=== PATIENT | male | born 1985 | race Caucasian/White ===

== ENCOUNTER 2023-10-21 15:08 | Outpatient (AMB) | payer OTHER, SELFPAY ==
--- NOTE | 2023-10-21 15:12 | HO.NEPHOV_ITS ---
HPI HPI Comments History of Present Illness Details Mr. 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 He had seen Dr. Ger Simon MD in the past and wants me to take over his care. He has been having hypertension well over 10 years. Multiple antihypertensive medications have been tried. Investigations to rule out secondary etiology had low yield. His TSH, cortisol, aldosterone, metanephrines were all negative. His renal functions were normal and so was his serum potassium. He had 24 hour blood pressure monitor as well as Doppler of his renal arteries. He did not have any renal artery stenosis. He has a log of blood pressure readings and still has suboptimal control. He was given lisinopril, amlodipine and hydrochlorothiazide, of which he has discontinued hydrochlorothiazide completely as it was giving him hyponatremia. He has no history of any coronary artery disease, congestive heart failure, CVA, peripheral arterial disease, palpitation, sweating, orthostatic symptoms, headache, visual disturbances. He does not take excess sodium in the diet. He maintains good hydration and avoids excess nonsteroidal anti-inflammatory medications. He is concerned about his suboptimally controlled blood pressure. He has no history or documented evidence of an end-organ damage. He is very compliant with his medication intake. He has very strong family history of blood pressure especially on his mother's side. [facility], [facility] Family History Mother Hypertension Social History (Updated 10/21/23 @ 15:18 by Sue Dewitt) Alcohol intake: current Patient Tobacco Use Status: Never used Tobacco Vital Signs 10/21/23 15:13 Height 5 ft 7 in Weight 199 lb BMI 31.2 BP 136/92 H Blood Pressure Location Lt brachial Position Sitting Pulse 70 Pulse Source Pulse Oximeter Pulse Oximetry (%) 96 Oxygen Delivery Method Room Air Physical Exam Vital Signs: Last Vital Signs Pulse 70 10/21/23 15:13 BP 136/92 H 10/21/23 15:13 Pulse Ox 96 10/21/23 15:13 Oxygen Delivery Method Room Air 10/21/23 15:13 BMI result Body Mass Index 31.2 Const General: comfortable and no acute distress Orientation/consciousness: patient oriented x3 HEENT Head: Yes normocephalic Mouth: Normal oral and palatal mucosa present Eyes EOM: EOMs intact bilaterally Neck Neck: Yes supple Resp Auscultation: clear to auscultation bilaterally Cardio Jugular venous distension: no JVD Rate: regular rate GI Palpation (GI): Soft to palpation Auscultation: normal bowel sounds General: Yes no CVA tenderness Back/Spine/Pelvis Back: no CVA tenderness Skin General skin exam: no rashes or lesions noted Neuro General: patient oriented x3 and moves all extremities Extrem General: Yes no pedal edema Assessment & Plan Assessment & Plan (1) Hypertension: Code(s): I10 - Essential (primary) hypertension Qualifiers: Hypertension type: primary hypertension Qualified Code(s): I10 - Essential (primary) hypertension Plan Mr. Yancey has longstanding hypertension. He is not known to have any retinopathy, left ventricular hypertrophy, proteinuria, coronary artery disease, congestive heart failure, diastolic dysfunction or CVA. He had extensive investigations to rule out secondary etiology for hypertension, which were all negative. Doppler of his renal arteries were normal. His serum potassium and renal functions are normal as well. He has been prescribed lisinopril, amlodipine and hydrochlorothiazide in the past. He had discontinued hydrochlorothiazide given his worsening hyponatremia. I discontinued his amlodipine and switched him to nifedipine 60 mg daily. I asked him to take nifedipine in the morning and lisinopril at night for the time being. He had no side effects from calcium channel amarjit amlodipine in the past. I shall order follow-up electrolytes and renal functions along with a urine protein creatinine ratio after the next visit. He maintains good hydration and low-sodium diet. He will benefit from a bit of weight loss. I discussed about primary and secondary hypertension, its etiologies, its investigations and management strategies. All his questions and concerns were addressed. Follow-up given. Medications: New nifedipine ER 60 mg PO DAILY 30 days 30 tabs 3RF Coding Level of Care Code New Pt Level 4 (55784) Diagnoses Primary hypertension I10 Hypertension type: primary hypertension Results Reviewed Nephrology Results: No Data to Display
[2023-10-21 15:13] VITALS: BP 136/92; PULSE 70; O2SAT 96; BMI 31.2
== END 2023-10-21 16:00 | disposition home or self-care (01) ==
PROVIDERS: PCP Internal Medicine; Visit Provider Internal Medicine Nephrology
DX: I10 Essential (primary) hypertension (principal)
CPT/HCPCS: 99204

== ENCOUNTER → 2023-10-21 15:08 | Outpatient (BNVA) | payer OTHER, SELFPAY | PROVIDERS: PCP Internal Medicine; Visit Provider Internal Medicine Nephrology ==

== ENCOUNTER 2023-11-18 15:27 | Outpatient (AMB) | payer OTHER, SELFPAY ==
[2023-11-18 15:36] VITALS: BP 124/82; PULSE 92; O2SAT 96; BMI 30.4
--- NOTE | 2023-11-18 15:36 | HO.NEPHOV_ITS ---
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 Multiple antihype rtensive medicatio ns have been tried in the past . In vestigations to ru le out secondary e tiology had low frisian eld. His TSH, cor tisol, aldosterone , metanephrines we re all negative. His renal function s were normal and so was his serum p otassium. He had 24 hour blood pres sure monitor as we ll as Doppler of h is renal arteries. He did not have any renal artery s tenosis. He has a log of blood pres sure readings and his BP is under be tter control since he saw me at the last visit. He wa s given lisinopril , amlodipine and h ydrochlorothiazide , of which he has discontinued hydro chlorothiazide in the past, complete ly as it was jonathanvin g him hyponatremia . He has no histo ry of any coronary artery disease, c ongestive heart fa ilure, CVA, periph eral arterial dise ase, palpitation, sweating, orthosta tic symptoms, head ache, visual distu rbances. He does not take excess so dium in the diet. He maintains good hydration and perez ids excess nonster oidal anti-inflamm atory medications. He has no history or documented dionicio dence of an end-or nick damage. He is very compliant wi th his medication intake. He has ve ry strong family h istory of blood pr essure especially on his mother's si de PFSH Medical History (Updated 11/18/23 @ 15:40 by Aby España MA) Hypertension Family History Mother Hypertension Social History Alcohol intake: current Patient Tobacco Use Status: Never used Tobacco Vital Signs 11/18/23 15:36 Height 5 ft 7 in Weight 194 lb BMI 30.4 BP 124/82 Blood Pressure Location Rt brachial Position Sitting Pulse 92 Pulse Source Pulse Oximeter Pulse Oximetry (%) 96 Oxygen Delivery Method Room Air Physical Exam Vital Signs: Last Vital Signs Pulse 92 11/18/23 15:36 BP 124/82 11/18/23 15:36 Pulse Ox 96 11/18/23 15:36 Oxygen Delivery Method Room Air 11/18/23 15:36 BMI result Body Mass Index 30.4 Const General: comfortable and no acute distress Orientation/consciousness: patient oriented x3 HEENT Head: Yes normocephalic Mouth: Normal oral and palatal mucosa present Eyes EOM: EOMs intact bilaterally Neck Neck: Yes supple Resp Auscultation: clear to auscultation bilaterally Cardio Jugular venous distension: no JVD Rate: regular rate GI Palpation (GI): Soft to palpation Auscultation: normal bowel sounds General: Yes no CVA tenderness Back/Spine/Pelvis Back: no CVA tenderness Skin General skin exam: no rashes or lesions noted Neuro General: patient oriented x3 and moves all extremities Extrem General: Yes no pedal edema Assessment & Plan Assessment & Plan (1) Hypertension: Code(s): I10 - Essential (primary) hypertension Qualifiers: Hypertension type: primary hypertension Qualified Code(s): I10 - Essential (primary) hypertension Plan Mr. Yancey has longstanding hypertension. He is not known to have any retinopathy, left ventricular hypertrophy, proteinuria, coronary artery disease, congestive heart failure, diastolic dysfunction or CVA. He had extensive investigations to rule out secondary etiology for hypertension, which were all negative. Doppler of his renal arteries were normal. His serum potassium and renal functions are normal as well. He has been prescribed lisinopril, amlodipine and hydrochlorothiazide in the past. He had discontinued hydrochl orothiazide given his worsening hyponatremia. He was started on nifedipine 60 mg daily at the last office visit. I asked him to take nifedipine in the morning and lisinopril at night for the time being. His BP is currently at goal after the medication change at the last visit. He maintains good hydration and low- sodium diet. He will benefit from a bit of weight loss. I discussed about primary and secondary hypertension, its etiologies, its investigations and management strategies. All his questions and concerns were addressed. Follow- up given. Coding Level of Care Code Est Pt Level 3 (61879) Diagnoses Primary hypertension I10 Hypertension type: primary hypertension Results Reviewed Nephrology Results: No Data to Display
== END 2023-11-18 16:07 | disposition home or self-care (01) ==
PROVIDERS: PCP Internal Medicine; Visit Provider Internal Medicine Nephrology
DX: I10 Essential (primary) hypertension (principal)
CPT/HCPCS: 99213

== ENCOUNTER → 2023-11-18 15:27 | Outpatient (BNVA) | payer OTHER, SELFPAY | PROVIDERS: PCP Internal Medicine; Visit Provider Internal Medicine Nephrology ==

== ENCOUNTER 2024-02-17 14:25 | Outpatient (AMB) | payer OTHER, SELFPAY ==
[2024-02-17 14:47] VITALS: BP 138/92; PULSE 68; O2SAT 97; BMI 30.1
--- NOTE | 2024-02-17 14:47 | HO.NEPHOV_ITS ---
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 He has been having hypertension well over 10 years. Multiple antihypertensive medications have been tried. Investigations to rule out secondary etiology had low yield. His TSH, cortisol, aldosterone, metanephrines were all negative. His renal functions were normal and so was his serum potassium. He had 24 hour blood pressure monitor as well as Doppler of his renal arteries. He did not have any renal artery stenosis. He was given lisinopril, amlodipine and hydrochlorothiazide, of which he has discontinued hydrochlorothiazide completely as it was giving him hyponatremia. He has no history of any coronary artery disease, congestive heart failure, CVA, peripheral arterial disease, palpitation, sweating, orthostatic symptoms, headache, visual disturbances. He does not take excess sodium in the diet. He maintains good hydration and avoids excess nonsteroidal anti-inflammatory medications. He is concerned about his suboptimally controlled blood pressure. He has no history or documented evidence of an end-organ damage. He is very compliant with his medication inta ke. He has very strong family history of blood pressure especially on his mother's side. [facility] Medical History (Updated 11/18/23 @ 15:40 by Aby España MA) Hypertension Family History Mother Hypertension Social History Alcohol intake: current Patient Tobacco Use Status: Never used Tobacco Physical Exam Vital Signs: Last Vital Signs Pulse 68 02/17/24 14:47 BP 138/92 H 02/17/24 14:47 Pulse Ox 97 02/17/24 14:47 Oxygen Delivery Method Room Air 02/17/24 14:47 BMI result Body Mass Index 30.1 Const General: comfortable and no acute distress Orientation/consciousness: patient oriented x3 HEENT Head: Yes normocephalic Mouth: Normal oral and palatal mucosa present Eyes EOM: EOMs intact bilaterally Neck Neck: Yes supple Resp Auscultation: clear to auscultation bilaterally Cardio Jugular venous distension: no JVD Rate: regular rate GI Palpation (GI): Soft to palpation Auscultation: normal bowel sounds General: Yes no CVA tenderness Back/Spine/Pelvis Back: no CVA tenderness Skin General skin exam: no rashes or lesions noted Neuro General: patient oriented x3 and moves all extremities Extrem General: Yes no pedal edema Results Reviewed Nephrology Results: No Data to Display Assessment & Plan Assessment & Plan (1) Hypertension: Code(s): I10 - Essential (primary) hypertension Category: Medical Qualifiers: Hypertension type: primary hypertension Qualified Code(s): I10 - Essential (primary) hypertension Plan Mr. Yancey has longstanding hypertension. He is not known to have any retinopathy, left ventricular hypertrophy, proteinuria, coronary artery disease, congestive heart failure, diastolic dysfunction or CVA. He had extensive investigations to rule out secondary etiology for hypertension, which were all negative. Doppler of his renal arteries were normal. His serum potassium and renal functions are normal as well. He has been prescribed lisinopril, amlodipine and hydrochlorothiazide in the past. He had discontinued hydrochlorothiazide given his worsening hyponatremia. I asked him to take nifedipine 90 mg daily along with current dose of lisinopril.He maintains good hydration and low-sodium diet. He will benefit from a bit of weight loss. All his questions and concerns were addressed. Follow-up given. Medications: Changed From nifedipine ER 60 mg PO DAILY 30 days 90 tabs 1RF To nifedipine ER 90 mg (1.5 x 60 mg) PO DAILY 90 days 135 tabs 1RF Coding Level of Care Code Est Pt Level 4 (47559) Diagnoses Primary hypertension I10 Hypertension type: primary hypertension
== END 2024-02-17 15:11 | disposition home or self-care (01) ==
PROVIDERS: PCP Internal Medicine; Visit Provider Internal Medicine Nephrology
DX: I10 Essential (primary) hypertension (principal)
CPT/HCPCS: 99214

== ENCOUNTER → 2024-02-17 14:25 | Outpatient (BNVA) | payer OTHER, SELFPAY | PROVIDERS: PCP Internal Medicine; Visit Provider Internal Medicine Nephrology ==

== ENCOUNTER 2024-07-20 09:51 | Outpatient (AMB) | payer OTHER, SELFPAY ==
[2024-07-20 10:20] VITALS: BP 110/82; PULSE 64; O2SAT 96; BMI 30.8
--- NOTE | 2024-07-20 10:20 | HO.NEPHOV ---
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 He has been having hypertension well over 10 years. Multiple antihypertensive medications have been tried. Investigations to rule out secondary etiology had low yield. His TSH, cortisol, aldosterone, metanephrines were all negative. His renal functions were normal and so was his serum potassium. He had 24 hour blood pressure monitor as well as Doppler of his renal arteries. He did not have any renal artery stenosis. He was given lisinopril, amlodipine and hydrochlorothiazide, of which he has discontinued hydrochlorothiazide completely as it was giving him hyponatremia. He has no history of any coronary artery disease, congestive heart failure, CVA, peripheral arterial disease, palpitation, sweating, orthostatic symptoms, headache, visual disturbances. He does not take excess sodium in the diet. He maintains good hydration and avoids excess nonsteroidal anti-inflammatory medications. He has no history or documented evidence of an end-organ damage. He is very compliant with his medication intake. He has very strong family history of blood pressure especially on his mother's side. [facility] Medical History (Updated 11/18/23 @ 15:40 by Aby España MA) Hypertension Family History Mother Hypertension Social History Alcohol intake: current Patient Tobacco Use Status: Never used Tobacco Review of Systems Const All systems reviewed & are unremarkable except as noted in HPI and below Physical Exam Vital Signs: Last Vital Signs Pulse 64 07/20/24 10:20 BP 110/82 07/20/24 10:20 Pulse Ox 96 07/20/24 10:20 Oxygen Delivery Method Room Air 07/20/24 10:20 BMI result Body Mass Index 30.8 Const General: comfortable and no acute distress Orientation/consciousness: patient oriented x3 HEENT Head: Yes normocephalic Mouth: Normal oral and palatal mucosa present Eyes EOM: EOMs intact bilaterally Neck Neck: Yes supple Resp Auscultation: clear to auscultation bilaterally Cardio Jugular venous distension: no JVD Rate: regular rate GI Palpation (GI): Soft to palpation Auscultation: normal bowel sounds General: Yes no CVA tenderness Back/Spine/Pelvis Back: no CVA tenderness Skin General skin exam: no rashes or lesions noted Neuro General: patient oriented x3 and moves all extremities Extrem General: Yes no pedal edema Results Reviewed Nephrology Results: No Data to Display Assessment & Plan Assessment & Plan (1) Hypertension: Code(s): I10 - Essential (primary) hypertension Category: Medical Qualifiers: Hypertension type: primary hypertension Qualified Code(s): I10 - Essential (primary) hypertension Plan Mr. Yancey has longstanding hypertension. He is not known to have any retinopathy, left ventricular hypertrophy, proteinuria, coronary artery disease, congestive heart failure, diastolic dysfunction or CVA. He had extensive investigations to rule out secondary etiology for hypertension, which were all negative. Doppler of his renal arteries were normal. His serum potassium and renal functions are normal as well. His BP is at goal on current medication regimen. .He maintains good hydration and low-sodium diet. He will benefit from a bit of weight loss. All his questions and concerns were addressed. Follow-up given. Orders: Orders Electrolytes 6 Months I10 - Essential (primary) hypertension Creatinine 6 Months I10 - Essential (primary) hypertension Blood Urea Nitrogen 6 Months I10 - Essential (primary) hypertension Medications: New lisinopril 40 mg PO DAILY 90 tabs 4RF Refilled nifedipine ER 60 mg PO DAILY 90 days 90 tabs 4RF nifedipine ER 30 mg PO DAILY 90 tabs 4RF Coding Level of Care Code Est Pt Level 4 (92435) Diagnoses Primary hypertension I10 Hypertension type: primary hypertension
== END 2024-07-20 10:45 | disposition home or self-care (01) ==
PROVIDERS: PCP Internal Medicine; Visit Provider Internal Medicine Nephrology
DX: I10 Essential (primary) hypertension (principal)
CPT/HCPCS: 99214

== ENCOUNTER → 2024-07-20 09:51 | Outpatient (BNVA) | payer OTHER, SELFPAY | PROVIDERS: PCP Internal Medicine; Visit Provider Internal Medicine Nephrology ==

== ENCOUNTER 2025-02-13 12:29 | Outpatient (REF) | payer OTHER, SELFPAY ==
--- OUTSIDE RECORDS SUMMARY | 2025-02-13 13:35 | XMS_ITS | Encounter Summary ---
Author Organization [facility] Address [address] [facility] [address] [address] [place] [address] Phone Care Team Providers Care Business Process Expert Name Role Phone Ryan Foster MD Primary Care Provider [phone] Encounter Details Date Type Department Care Team (Late st Contact Info) Description 01/04/2023 Documentation Only [facility] [address] [place] [phone] [place], [place] Social History Tobacco Use Types Packs/Day Years Used Date Smoking Tobacco: Never Smokeless Tobacco: Never Alcohol Use Standard Drinks/Week Comments Yes 0 (1 standard drink = 0.6 oz pur e alcohol) Sex and Gender Information Value Date Recorded Sex Assigned at Not on file Legal Sex Male 10:26 AM EDT Gender Identity Not on file Sexual Orientation Not on file COVID-19 Exposure Response Date Recorded In the last 10 days, have yo u been in contact with someone who was confirmed or suspected to have Coronavirus/COVID-19? No / Unsure 01/05/2023 6:07 AM EDT documented as of this encounter Plan of Treatment Not on file documented as of this encounter Visit Diagnoses Not on filedocumented in this encounter Care Teams Business Process Expert Relationship Specialty Start Date End Date Ryan Foster MD [address] [place] [address] PCP - General Internal Medicine 02/13/22 documented as of this encounter
--- OUTSIDE RECORDS SUMMARY | 2025-02-13 13:35 | XMS_ITS | Encounter Summary ---
Author Organization [facility] Address [address] [facility] [address] [place] [address] Phone Care Team Providers Care Supervisor Pre Wave Name Role Phone Ryan Foster MD Primary Care Provider [phone] Encounter Details Date Type Department Care Team (Late st Contact Info) Description 01/05/2023 Documentation Only [facility] [address] [place] [id number] [place], [place] Social History Tobacco Use Types Packs/Day [...] on filedocumented in this encounter Care Teams Supervisor Pre Wave Relationship Specialty Start Date End Date Ryan Foster MD [address] [place] [address] PCP - General Internal Medicine 02/13/22 documented as of this encounter
--- OUTSIDE RECORDS SUMMARY | 2025-02-13 13:36 | XMS_ITS | Clinical Summary ---
Author Organization [address] Address [address] [place] [id number] Phone Care Team Providers Care Correctional Treatment Specialist Name Role Phone Ryan Foster MD Primary Care Provider [phone] Encounters Date Type Department Care Team Description 01/01/2025 Lab Requisition [facility] - Main Lab [address] [facility] [place] [address] Vini Guy MD Encounter for sterilization from Last 3 Months Surgical History Surgery Date Site/Laterality Comments OTHER SURGICAL HISTORY PROCEDURE: DENIES PREVIOUS SURGERY Family History Medical History Relation Name Comments Hypertension Father Relation Name Status Comments Brother Alive healthy Father Alive HTN Mother Alive healthy Social History Tobacco Use Types Packs/Day Years Used Date Smoking Tobacco: Never Smokeless Tobacco: Never Alcohol Use Standard Drinks/Week Comments Yes 5 (1 standard drink = 0.6 oz pur e alcohol) Sex and Gender Information Value Date Recorded Sex Assigned at Not on file Legal Sex Male 5:36 PM EST Gender Identity Not on file Sexual Orientation Not on file Obstetrics History Plan of Treatment Health Maintenance Due Date Last Done Comments Hepatitis B Vaccines (1 of 3 - 19+ 3-dose series) 2003 DTaP,Tdap,and Td Vaccines (2 - Td or Tdap) 01/02/2021 01/02/2011 COVID-19 Vaccine (2023-2 5 season) 2024 Cholesterol Screening (Lipid Panel) 08/05/2024 Depression Screening 08/05/2024 HIV Screening 08/05/2024 Hepatitis C Screening 08/05/2024 Hypertension/CHF/CAD Annual BMP Blood Test 08/05/2024 Social Influencers of Health Screening 08/05/2024 Influenza Vaccine (Season Ended) 2025 08/09/20 14 HIB Vaccines Aged Out No longer eligi ble based on patient's age to complete this topic HPV Vaccines Aged Out No longer eligi ble based on patient's age to complete this topic Hepatitis A Vaccines Aged Out No long er eligible based on patient's age to complete this topic IPV Vaccines Aged Out No longer eligi ble based on patient's age to complete this topic MMR Vaccines Aged Out No longer eligi ble based on patient's age to complete this topic Meningococcal ACWY Vaccine Aged Out N o longer eligible based on patient's age to complete this topic Meningococcal B Vaccine Aged Out No l onger eligible based on patient's age to complete this topic Pneumococcal Vaccine: Pediat rics (0 to 5 Years) and At-Risk Patients (6 to 64 Years) Aged Out No longer eligi ble based on patient's age to complete this topic RSV Immunization Patients Un richardson 20 months Aged Out No longer eligible b ased on patient's age to complete this topic Varicella Vaccines Aged Out No longer eligible based on patient's age to complete this topic Procedures Procedure Name Priority Date/Time Associated Diagnosis Comments AP OUTSIDE CONSULT Routine 12/27/2024 Encounter for sterilization from Last 3 Months Results * Anatomic pathology outside consult (12/27/2024) Final Diagnosis A. Vas deferens, right, vasectomy: - Segment of vas deferens with complete cross section of wall and lumen identified. B. Vas deferens, left, vasectomy: - Segment of vas deferens with complete cross section of wall and lumen identified. 01/03/2025 3:05 PM EDT [facility] ([facility]) [facility] Clinical Information Z30.2 Encounter for sterilization [id number] 01/03/2025 3:05 PM EDT [facility] ([facility]) [facility] Gross Description A. Vas Deferens, Right, : Labeled Right vas deferens . Received in formalin is a 0.2 x 0.3 cm rubbery, grajeda, tubular portion of tissue, with a central pinpoint lumen, which is submitted in toto in one cassette, between sponges, one piece, embed on end. (The luminal aspect is inked red to assist with embedding orientation.) B. Vas Deferens, Left, : Labeled Left vas deferens . Received in formalin is a 0.2 x 0.3 cm rubbery, grajeda, tubular portion of tissue, with a central pinpoint lumen, which is submitted in toto in one cassette, between sponges, one piece, embed on end. (The luminal aspect is inked red to assist with embedding orientation.) /al 01/03/2025 3:05 PM EDT [facility] Disclaimer Unless otherwise specified, all tissue is 10% NB formalin fixed and paraffin embedded. Technical pathology services provided by [facility] at [address] [place] [address] [address], [place] [address] (CLIA #[id number]/Herminia Noble MD, Pet Crematory Worker) 01/03/2025 3:05 PM EDT [facility] Tissue Structure of left vas deferens / Unknown 12/27/2024 01/01/2025 11:53 AM EDT Tissue specimen (specimen) Structure of left vas deferens / Unknown 12/27/2024 01/01/2025 11:53 AM EDT us Vini Guy MD LAB PATHOLOGY ORDERABLES Fin al Result [facility] [address] [place] [address], from Last 3 Months Insurance [employer] Care Teams Correctional Treatment Specialist Relationship Specialty Start Date End Date Ryan Foster MD [address] [place] [address] PCP - General Internal Medicine 01/01/25
--- OUTSIDE RECORDS SUMMARY | 2025-02-13 13:36 | XMS_ITS | Clinical Summary ---
Author Organization [facility] Address [address] [place] [id number] Care Team Providers Care Electric Switch Tester Name Role Phone Radha Pickard BATTER MIXER Primary Care Provider Unavai lable Allergies Active Allergy Reactions Criticality Noted Date Comments Diphenhydramine Other 04/29/2018 insomnia insomnia Active Problems No known active problems Immunizations Name Administration Dates Next Due Influenza, Quad Single Dose PF 0.5mL 6+Mo 2021 Influenza, trivalent (IIV3), split virus (single-dose) PF 07/17/2020 Social History Tobacco Use Types Packs/Day Years Used Date Smoking Tobacco: Never Assessed Sex and Gender Information Value Date Recorded Sex Assigned at Not on file Legal Sex Male 8:07 AM [facility] Gender Identity Not on file Sexual Orientation Not on file Plan of Treatment Health Maintenance Due Date Last Done Comments Hepatitis C Screening 1984 PHQ-9 Depression Screen 1996 MISSY-7 Anxiety Screen 2002 Annual Preventive Exam 08/11/2023 , 08/05/2021, 07/31/2020, Additional history exists COVID-19 Vaccine (2023-2 5 season) 2024 Influenza Vaccine (Season Ended) 2025 07/20/2022, 07/15/2021, 07/17/2020, Additional history exists DTaP,Tdap,and Td Vaccines (3 - Td or Tdap) 07/15/2031 07/15/2021, 01/02/2011 RSV Vaccine (SCDM) (1 - 1-do se 75+ series) 2059 Insurance [employer] Care Teams Electric Switch Tester Relationship Specialty Start Date End Date Radha Pickard NP PCP - General Internal Medicine 08/01/21
--- OUTSIDE RECORDS SUMMARY | 2025-02-13 13:36 | XMS_ITS | Clinical Summary ---
Author Organization [facility] Address [address] [facility] [address] [place] [id number] Phone Care Team Providers Care Catering Attendant Name Role Phone Ryan Foster MD Primary Care Provider [phone] Allergies Active Allergy Reactions Criticality Noted Date Comments Diphenhydramine Hcl Other (See Comments) 2017 insomnia Hydrochlorothiazide Hyponatremia 05/08/2024 Medications MULTIVITAMIN ORAL Take 2 gummies by mouth daily. Active lisinopril (PRINIVIL,ZESTRIL ) 40 MG tabletIndications :Essential hypertension take 1 tablet daily 90 tablet 3 4 Active NIFEdipine (PROCARDIA XL) 60 MG 24 hr tablet Take 90 mg by mouth daily. 4 Active NIFEdipine (PROCARDIA XL) 30 MG 24 hr tablet Take 90 mg by mouth daily. 4 Active Active Problems Problem Noted Date Diagnosed Date KUMAR (obstructive sleep apnea) 06/16/2022 Assessment & Plan (08/12/2022 1:05 PM EST): Awaiting CPAP Benign essential hypertension 05/08/2018 Overview (05/08/2018): Diagnosed mid-20s. Failed trial of amlodipine. Electrolyte imbalances on chlorthalidone. Assessment & Plan (08/12/2022 1:06 PM EST): Prefers to taper off HCTZ given urinary frequency on this medication. He will send most recent labs, then consider holding this medication while monitoring BP. Assessment & Plan (08/04/2020 3:54 PM EST): Improved with weight loss. Will check blood pressure at home and if persistently low will consider decreasing lisinopril to 30 mg daily and monitoring. Congratulated him on lifestyle changes. Resolved Problems Problem Noted Date Diagnosed Date Resolved Date Fatigue 08/04/2020 08/05/2021 Assessment & Plan (08/04/2020 3:55 PM EST): Overall improvement from last month. Check labs. Neck strain 08/04/2020 08/05/2021 Assessment & Plan (08/04/2020 3:55 PM EST): Reviewed home stretching regimen for neck. If not improving he will follow consider physical therapy as needed. Encounters Date Type Department Care Team Description 01/05/2025 Orders Only [facility] Internal Medicine [address] [place] [address] Provider, MD Eduar from Last 3 Months Immunizations Immunization Administration Dates Next Due Influenza Quadrivalent MDCK Preservative Free IM 07/05/2018 Influenza Quadrivalent Preservative Free IM 07/04,07/15/2021,08/01/2019 Influenza Trivalent Preservative Free IM 024,07/17/2020 Influenza Trivalent w/ Preservative IM 4 Influenza, Unspecified Formulation 08/09/2014 Tdap 07/15/2021,01/02/2011 Family History Medical History Relation Comments Hyperlipidemia Brother Hypertension Father Coronary artery disease Maternal Grandfather Heart attack Maternal Grandfather Heart disease Maternal Grandfather Hypertension Maternal Grandfather Dementia Maternal Grandmother Hypertension Mother Cancer Paternal Grandmother Relation Status Comments Brother Alive Daughter Alive Father Alive Maternal Grandfather (Age 85) Maternal Grandmother (Age 89) Mother Alive Paternal Grandfather Paternal Grandmother (Age 79) Son Alive Social History Tobacco Use Types Packs/Day Years Used Date Smoking Tobacco: Never Smokeless Tobacco: Never Tobacco Cessation:Counseling Given: Not Answered Alcohol Use Standard Drinks/Week Comments Yes 4 (1 standard drink = 0.6 oz pur e alcohol) Child or Family Care Answer Date Record ed Do you have problems with on e of the following making it difficult for you to work, study, or receive health care? No 09/29/2024 Education Answer Date Recorded Are you interested in help w ith more adult education (for example, completing high school, GED, job training, learning the [place] language, technical skills, or developing parenting skills)? No 09/29/2024 Are you concerned about learning? Not on file 09/29/2024 No 09/29/2024 Yes 09/29/2024 Food Answer Date Recorded Within the past 6 months we worried whether our food would run out before we got money to buy more. Never True 09/29/2024 Within the past 6 months the food we bought just didn't last and we didn't have enough money to get more. Never True Residential Stability Answer Date Recor ded What is your housing situation today? I have rossana sing 09/29/2024 How many times have you move d in the past 12 months? Zero (I did not move) 09/29/2024 Paying for Meds Answer Date Recorded Do you have trouble paying for medicines? No 09/29/2024 Paying Utility Bills Answer Date Record ed Do you have trouble paying your heating or elect ricity bill? No 09/29/2024 Transportation Answer Date Recorded Has the lack of transportati on kept you from medical appointments or from getting medications? No 09/29/2024 Unemployment Answer Date Recorded Are you currently unemployed or working on a part-time or temporary basis, and looking for work? No 09/29/2024 Digital Access Answer Date Recorded No 09/29/2024 Yes 09/29/2024 Do you have reliable internet access at home? Ye s 09/29/2024 Do you have a device (e.g., phone, tablet, computer) with a working camera? Yes 09/29/2024 Intimate Partner Violence Answer Date R ecorded Denied Basic Needs Not on file 09/30/2024 In the past 12 months have y ou been in a relationship with a person who hurts, threatens, or tries to control you? No 09/30/2024 Worried food would run out Not on file 09/30 In the past 12 months have y ou been in a relationship with a person who hurts, threatens, or tries to control you? No 09/30/2024 Sex and Gender Information Value Date Recorded Sex Assigned at Male 08/04/2021 6:38 AM EDT Legal Sex Male 9:19 AM EDT Gender Identity Male 08/04/2021 6:38 AM EDT Sexual Orientation Straight 08/04/2021 6: 38 AM EDT Last Filed Vital Signs Vital Sign Reading Time Taken Comments Blood Pressure 120/88 10/06/2024 8:54 AM EST Pt reports BP130/89 Rt arm taken this AM Pulse 78 10/06/2024 8:54 AM EST Temperature 36.1 ??C (96.9 ??F) 10/06/2024 8 :54 AM EST Respiratory Rate 16 10/06/2024 8:54 AM EST Oxygen Saturation 95% 10/06/2024 8:5 4 AM EST Inhaled Oxygen Concentration - - Weight 93 kg (205 lb) 10/06/2024 8:54 AM EST Height 170.7 cm (5' 7.21 ) 10/06/2024 8 :54 AM EST Body Mass Index 31.91 10/06/2024 8:54 AM EST Plan of Treatment Upcoming Encounters Date Type Department Care Team (Late st Contact Info) Description 04/11/2025 8:00 AM EDT Appointment [facility] [address] [place] [address] Ryan Foster MD [address] [place] [address] Health Maintenance Due Date Last Done Comments HEPATITIS C SCREENING 2002 HIV ONE-TIME SCREENING (18-65 YEARS) 2002 COVID-19 VACCINE ( season) 2024 10/15/2021, 01/17/2021, 12/26/2020 BLOOD PRESSURE 04/05/2025 10/06/2024 CREATININE LEVEL 05/08/2025 05/08/2024, , 02/05/2022, Additional history exists POTASSIUM LEVEL 05/08/2025 05/08/2024, 10/05, 02/05/2022, Additional history exists DEPRESSION SCREENING 09/30/2025 09/30/2024 SCREENING FOR DIABETES 05/08/2027 05/08/2024, 2023 LIPID PANEL 05/08/2029 05/08/2024, 10/05, 02/05/2022, Additional history exists Adult Td,Tdap Booster 07/15/2031 07/15/2021, 011 SMOKING STATUS SCREENING (Once After 26 Yrs) Completed 10/06/2024 HEPATITIS A VACCINES Aged Out No long er eligible based on patient's age to complete this topic HIB VACCINES Aged Out No longer eligi ble based on patient's age to complete this topic MENINGOCOCCAL VACCINES (ACWY) Aged Out No longer eligible based on patient's age to complete this topic PNEUMOCOCCAL VACCINES (0-49 years) Aged Out No longer eligible based on patient's age to complete this topic Medical Devices Not on file Procedures Procedure Name Priority Date/Time Associated Diagnosis Comments OUTSIDE PATHOLOGY Routine 01/01/2025 12:44 PM EDT LIPID PANEL Routine 05/08/2024 8:42 AM EDT Pure hypercholesterolemia COMPREHENSIVE METABOLIC PANEL Routine 05/08/2024 8:42 AM EDT Primary hypertension from Last 3 Months or Most Recently Relevant to Health Maintenance Results * Outside Pathology (01/01/2025 12:44 PM EDT) us Historical Provider PATHOLOGY ORDERABLES Renata l Result * (ABNORMAL) Comprehensive metabolic panel (05/08/2024 8:42 AM EDT) SODIUM 137 133 - 146 mmol/L [facility] POTASSIUM 4.3 3.3 - 5.1 mmol/L [facility] CHLORIDE 100 96 - 108 mmol/L [facility] CO2 26 21 - 35 mmol/L [facility] BUN 11 6 - 19 mg/dL [facility] CREATININE 0.90 0.5 - 1.5 mg/dL [facility] GLUCOSE 104(H) 70 - 99 mg/dL [facility] ALBUMIN 4.7 3.9 - 4.8 g/dL [facility] TOTAL PROTEIN 7.1 6.5 - 8.0 g/dL [facility] CALCIUM 9.5 8.4 - 10.3 mg/dL [facility] ALKALINE PHOSPHATASE 69 39 - 117 U/L [facility] TOTAL BILIRUBIN 0.7 0.0 - 1.2 mg/dL [facility] AST 31 0 - 37 U/L [facility] ALT 37 0 - 40 U/L [facility] GLOBULIN 2.4 1 - 4.8 g/dL [facility] EGFR 111 >59 mL/min/1.7 3m2 [facility] Comment:Estimated glomerular filtration rate calculated using the CKD-EPI refit equation. ANION GAP 15 10 - 20 mmol/L [facility] Blood 05/08/2024 8:42 AM EDT 05/08/2024 8:47 AM EDT us Ryan Foster MD LAB BLOOD ORDERABLES Final Re sult [address] [address] * (ABNORMAL) Lipid panel (05/08/2024 8:42 AM EDT) HDL 101 mg/dL [facility] Comment: ? Interpretation <40 mg/dL: Low HDL cholesterol (major risk factor for CHD) Greater than or equal to 60 mg/dL: High HDL cholesterol ( negative risk factor for CHD) HDL - cholesterol is affected by a number of factors, e.g. smoking, excerise, hormones, sex and age. CHOLESTEROL 241(H) 0 - 240 mg/dL [facility] TRIGLYCERIDES 64 30 - 160 mg/dL [facility] LDL 127 50 - 129 mg/dL [facility] Comment: LDL levels in terms of risk for coronary heart disease: <100 mg/dL: Optimal 100-129 mg/dL: Near or above optimal 130-159 mg/dL: Borderline high 160-189 mg/dL: High >190 mg/dL: Very High CARDIAC RISK RATIO 2.4(L) 3.4 - 5.0 [facility] Blood 05/08/2024 8:42 AM EDT 05/08/2024 8:47 AM EDT us Ryan Foster MD LAB BLOOD ORDERABLES Final Re sult [address] [address] from Last 3 Months or Most Recently Relevant to Health Maintenance Insurance [employer] PPO CIGNA PPO [employer]IG[employer] PPO [employer]IG[employer] PPO CIGNA PPO [employer]IG[employer] PPO [employer] PPO [employer] PPO [employer] PPO Care Teams Catering Attendant Relationship Specialty Start Date End Date Ryan Foster MD [address] [place] [phone] [email or web address] PCP - General Internal Medicine 07/06/23 Additional Source Comments The information contained in this document represents components of the legal health record. It is not the complete legal health record.[facility]
--- OUTSIDE RECORDS SUMMARY | 2025-02-13 13:36 | XMS_ITS | Clinical Summary ---
Author Organization [facility] Address [address] [place] [address] Phone Care Team Providers Care Order Tracer Name Role Phone Ryan Foster MD Primary Care Provider [phone] Allergies Active Allergy Reactions Criticality Noted Date Comments Diphenhydramine Other (see comments) 04/29/2018 insomnia Medications lisinopril 40 MG tablet Take 40 mg by mouth 1 (one) time each day 01/26/2022 Active amLODIPine (NORVASC) 10 MG tablet Take 10 mg by mouth 1 (one) time each day 02/05/2022 Active hydroCHLOROthia zide 25 MG tablet Take 0.5 tablets (12.5 mg total) by mouth 1 (one) time each day 90 tablet 2 04/16/2022 Active Active Problems Problem Noted Date Diagnosed Date Obstructive sleep apnea syndrome 06/16/2022 Overview (12/09/2022): Last Assessment & Plan: Awaiting CPAP Essential hypertension 05/08/2018 Overview (03/19/2022): Diagnosed mid-20s. Failed trial of amlodipine. Electrolyte imbalances on chlorthalidone. Last Assessment & Plan: Improved with weight loss. Will check blood pressure at home and if persistently low will consider decreasing lisinopril to 30 mg daily and monitoring. Congratulated him on lifestyle changes. Immunizations Immunization Administration Dates Next Due Influenza (IM) Preservative Free 07/17/2020 Influenza, MDCK, PF, Quadrivalent 07/05/2018 Influenza, Quadrivalent, Pre servative Free 07/20/2022,07/15/2021,07/17/2020,2018 Influenza, Unspecified 08/09/2014 Tdap 07/15/2021,01/02/2011 Family History Medical History Relation Comments Hypertension Father Relation Status Comments Father Social History Tobacco Use Types Packs/Day Years Used Date Smoking Tobacco: Never Smokeless Tobacco: Never Tobacco Cessation:Counseling Given: No Alcohol Use Standard Drinks/Week Comments Yes 0 (1 standard drink = 0.6 oz pur e alcohol) Sex and Gender Information Value Date Recorded Sex Assigned at Not on file Legal Sex Male 10:26 AM EDT Gender Identity Not on file Sexual Orientation Not on file Last Filed Vital Signs Vital Sign Reading Time Taken Comments Blood Pressure 124/81 02/11/2023 4:04 PM EDT Pulse 88 02/11/2023 4:04 PM EDT Temperature - - Respiratory Rate - - Oxygen Saturation 99% 02/11/2023 4:04 PM EDT Inhaled Oxygen Concentration - - Weight 86.6 kg (191 lb) 02/11/2023 4:04 PM EDT Height - - Body Mass Index - - Plan of Treatment Health Maintenance Due Date Last Done Comments Hepatitis B Vaccine (1 of 3 - 19+ 3-dose series) 2003 Influenza Vaccine (Season Ended) 2025 07/20/2022, 07/15/2021, 07/17/2020, Additional history exists Pneumococcal Vaccine: Peds (0 to 5 Years) and At-Risk Patients (6 to 49 Years) Aged Out No longer eligi [facility] based on patient's age to complete this topic Insurance [employer] Care Teams Order Tracer Relationship Specialty Start Date End Date Ryan Foster MD [address] [place] [address] PCP - General Internal Medicine 02/13/22
[2025-02-13 18:30] LABS: Anion Gap 15 (12-20); Blood Urea Nitrogen 13 mg/dL (9-16); Carbon Dioxide 25 mmol/L (22-29); Chloride 101 mmol/L (96-108); Estimated Glomerular Filt Rate > 60; Potassium 3.6 mmol/L (3.3-5.1); Sodium 137 mmol/L (135-145)
== END 2025-02-13 12:30 | disposition home or self-care (01) ==
LOC: HO.HKASLDS 12:29
PROVIDERS: Visit Provider Internal Medicine Nephrology
DX: I10 Essential (primary) hypertension (principal)
CPT/HCPCS: 36415; 80051; 82565; 84520

== ENCOUNTER 2025-02-22 14:39 | Outpatient (AMB) | payer OTHER, SELFPAY ==
--- NOTE | 2025-02-22 14:43 | HO.NEPHOV ---
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 He has been having hypertension well over 10 years. Multiple antihypertensive medications have been tried. Investigations to rule out secondary etiology had low yield. His TSH, cortisol, aldosterone, metanephrines were all negative. His renal functions were normal and so was his serum potassium. He had 24 hour blood pressure monitor as well as Doppler of his renal arteries. He did not have any renal artery stenosis. He was given lisinopril, amlodipine and hydrochlorothiazide, of which he has discontinued hydrochlorothiazide completely as it was giving him hyponatremia. He has no history of any coronary artery disease, congestive heart failure, CVA, peripheral arterial disease, palpitation, sweating, orthostatic symptoms, headache, visual disturbances. He does not take excess sodium in the diet. He maintains good hydration and avoids excess nonsteroidal anti-inflammatory medications. He has no history or documented evidence of an end-organ damage. He is very compliant with his medication intake. He has very strong family history of blood pressure especially on his mother's side. [facility] Medical History Hypertension Family History Mother Hypertension Social History Alcohol intake: current Patient Tobacco Use Status: Never used Tobacco Review of Systems Const All systems reviewed & are unremarkable except as noted in HPI and below Physical Exam Vital Signs: Last Vital Signs Pulse 69 02/22/25 14:47 BP 130/80 02/22/25 14:47 Pulse Ox 99 02/22/25 14:47 Oxygen Delivery Method Room Air 02/22/25 14:47 BMI result Body Mass Index 32.2 Const General: comfortable and no acute distress Orientation/consciousness: patient oriented x3 HEENT Head: Yes normocephalic Mouth: Normal oral and palatal mucosa present Eyes EOM: EOMs intact bilaterally Neck Neck: Yes supple Resp Auscultation: clear to auscultation bilaterally Cardio Jugular venous distension: no JVD Rate: regular rate GI Palpation (GI): Soft to palpation Auscultation: normal bowel sounds General: Yes no CVA tenderness Back/Spine/Pelvis Back: no CVA tenderness Skin General skin exam: no rashes or lesions noted Neuro General: patient oriented x3 and moves all extremities Extrem General: Yes no pedal edema Results Reviewed Nephrology Results: Sodium 137 mmol/L (135-145) 02/13/25 Potassium 3.6 mmol/L (3.3-5.1) 02/13/25 Chloride 101 mmol/L (96-108) 02/13/25 Carbon Dioxide 25 mmol/L (22-29) 02/13/25 BUN 13 mg/dL (9-16) 02/13/25 Creatinine 0.83 mg/dL (0.5-1.4) 02/13/25 Assessment & Plan Assessment & Plan (1) Hypertension: Code(s): I10 - Essential (primary) hypertension Category: Medical Qualifiers: Hypertension type: primary hypertension Qualified Code(s): I10 - Essential (primary) hypertension Plan Mr. Yancey has longstanding hypertension. He is not known to have any retinopathy, left ventricular hypertrophy, proteinuria, coronary artery disease, congestive heart failure, diastolic dysfunction or CVA. He had extensive investigations to rule out secondary etiology for hypertension, which were all negative. Doppler of his renal arteries were normal. His serum potassium and renal functions are normal as well. His BP is at goal on current medication regimen. .He maintains good hydration and low-sodium diet. He will benefit from a bit of weight loss. All his questions and concerns were addressed. Follow-up given. Coding Level of Care Code Est Pt Level 4 (45664) Diagnoses Primary hypertension I10 Hypertension type: primary hypertension
[2025-02-22 14:47] VITALS: BP 130/80; PULSE 69; O2SAT 99; BMI 32.2
== END 2025-02-22 15:09 | disposition home or self-care (01) ==
LOC: HO.HKAS 14:39
PROVIDERS: PCP Internal Medicine; Visit Provider Internal Medicine Nephrology
DX: I10 Essential (primary) hypertension (principal)
CPT/HCPCS: 99214